=== PATIENT | male | born 1965 | race Caucasian/White ===

== ENCOUNTER → 2017-10-05 | Outpatient (CLI) | payer OTHER ==
--- NOTE | 2017-10-05 10:05 | DIAGNOSTIC IMAGING REPORT ---
SOFT TISS HEAD/NECK-THYROID HISTORY: None MASS LEFT MANDABLE COMPARISON: None. FINDINGS: Survey evaluation of the soft tissue neck ultrasonically is considerably targeted at the left submandibular region. At this position a 5 x 9 mm mixed echogenicity nodule is present. This suggests a benign lymph node with an echogenic core. IMPRESSION: Palpable nodular density ultrasonically is highly suggestive of a benign small lymph node. The above report was generated using voice recognition software. It may contain grammatical, syntax or spelling errors. Electronically signed by: Anish Vaughan M.D. 10/05/2017 10:03 AM Dictated Date/Time: 10/05/2017 10:01 AM
== END | disposition home or self-care (01) ==
LOC: C.ULTRBC 09:31
PROVIDERS: ATTEND Family Medicine
DX: R22.0 Localized swelling, mass and lump, head (principal)